=== PATIENT | female | born 1945 | race Caucasian/White ===

== ENCOUNTER 2021-02-05 09:18 | Day surgery (SDC) | payer MEDICARE, SELFPAY ==
--- NOTE | 2021-02-04 13:15 | PM.PREOP ---
Pre-operative Note COVID-19 COVID-19 status: Negative Interval Note History & Physical reviewed/Exam performed by Physician: Yes Changes to H&P: No H&P completed within 30 days and has changed as indicated here:: As blood pressure was markedly elevated at her preoperative exam she was seen by Dr. martin and started on lisinopril 20 mg a day 3 days ago. It has now improved and she is stable for surgery.
--- NOTE | 2021-02-05 07:15 | P.OP_ITS ---
Operative Date/Time/Diagnoses Date of procedure: 02/05/21 Time of procedure: 11:45 Procedure & Clinicians Procedure: Preoperative diagnoses: 1. Left complex surgery with use of capsular dye and possible MiLoop. 2. Mature or advanced nuclear sclerotic and cortical cataract with poor visibility of the anterior capsule increasing surgical risks of complications. 3. Uncontrolled hypertension. Postoperative diagnoses: 1. Left complex surgery with use of capsular dye and MiLoop. 2. Placement of a posterior chamber intraocular lens implant. Surgeon: Uzma Rahman MD Complications: none Specimen: None Implant: DIBOO+20.5 Blood loss: None Anesthesia: Retrobulbar with monitored standby. Description of procedure: Dictated by: Uzma Rahman MD Copy to: [facility] Post operative diagnoses: 1. Left complex cataract removed with use of capsular dye and MiLoop with placement of a posterior chamber intraocular lens. Procedure: Phacoemulsification with posterior chamber intraocular lens implant Surgeon: Uzma Rahman MD Blood loss: None Anesthesia: Retrobulbar with monitored standby Description of procedure: Patient has presented with decreased vision with count fingers vision due to extreme myopic shift. This is due to cataract which is affecting activities of daily living both at distance and. Due to the advanced cataract capsular dye will be needed as well as a MiLoop. The patient wants surgery to improve vision. She has no primary care physician though screening exam does show hypertension and she has been referred for follow-up. She understands the extra risk of surgery during the COVID-19 epidemic wishes to proceed. She has tested COVID virus negative within 72 hours of the procedure. The patient was taken to the operating room and given IV sedation. A retrobulbar block consisting of 6 cc of 2% xylocaine without epinephrine mixed half and half with 0.5% Marcaine with 1 cc of hyaluronidase added is placed between the medial and lateral 1/3 of the inferior orbital rim. Lid akinesia is obtain with 1% xylocaine with epinephrine infiltrated along the lid margin. The eye is manually massaged for 30 sec, prepped using Betadine solution, and draped in the usual sterile fashion. Temporal approach was made, a 1 mm side-port incision was performed 90 degrees from the planned corneal wound. Phenylephrine 1.5% mixed with 1% xylocaine 0.2 cc was placed into the anterior chamber. [An air bubble was placed and Visudyne dye was placed to improve visibility of the anterior capsule. The dye was irrigated out to reduce bubbles.] Viscoat followed by Healon was then placed. A 2.6 mm clear incision with a 2.6 mm blade was placed. A 360 degree capsulorrhexis style capsulotomy was then performed with a cystitome needle on a Healon. Hydrodelineation and hydrodissection were performed. The phacoemulsification unit is introduced, and sculpting used to groove the central lens slightly. It was very dense in the center in the Miloop was used. It was inspected and then opened up under the capsulorrhexis to the right and swept past midline of the lens. It was then placed back to midline and well- centered the loop was closed bisecting the lens in. It was then carefully removed from the anterior chamber. The hem-dissected nucleus was then removed in chopping mode. Epi nucleus is removed with epinuclear mode and irrigation aspiration was used to remove the peripheral cortex. The posterior capsule is polished. The intraocular lens is selected, inspected, power confirmed, and placed in the posterior chamber. The pupil was constricted with Miostat. The wound was stromally hydrated and tested for leaks, there was none and was left sutureless. Vigamox 0.1 cc was placed into the anterior chamber. Kenalog 0.2 cc was placed in the superior subconjunctival space. A drop of antibiotic and was placed and the eye was patched and shielded. The patient was stable and returned to the recovery room in excellent condition. Dictated by: Uzma Rahman MD Copy to: [facility] Same procedure as scheduled: Yes
[2021-02-05 09:45] VITALS: BP 169/83; PULSE 85; RESP 13; TEMP 36.4; O2SAT 98
[2021-02-05] MEDS: PROPARACAINE 0.5% OPHTH SOL 2 DROPS EYE-OP (09:55)
[2021-02-05] MEDS: CATARACT EYE COMPOUND (10 DROPS/SYRINGE) 3 DROPS EYE-OP (09:58)
[2021-02-05] MEDS: LIDOCAINE 2% 4 ML, BUPIVACAINE 0.5% (PF) 4 ML, HYALURONIDASE 150 UNIT INJ (11:00)
[2021-02-05] MEDS: CHONDROIDTIN/SOD HYALURONATE 1.05 ML SYRINGE INTRAOCULA (11:15)
[2021-02-05] MEDS: PHENYLEPHRINE/LIDOCAINE VIAL (OR) 0.2 ML EYE-OP (11:16)
[2021-02-05] MEDS: HYALURONATE SODIUM 10 MG/ML SYRINGE INJ (11:16)
[2021-02-05] MEDS: MOXIFLOXACIN INJ 4 MG/0.8 ML VIAL 0.5 MG EYE-OP (11:16)
[2021-02-05] MEDS: ERYTHROMYCIN OPHTH 1 GM OINT 1 APPLIC EYE-LEFT (11:16)
[2021-02-05] MEDS: TRIAMCINOLONE 50 MG/5 ML VIAL INJ (11:17)
[2021-02-05] MEDS: TRYPAN BLUE 0.5 ML SYRINGE INJ (11:17)
[2021-02-05] MEDS: BALANCED SALT IRRIG SOLN NO.2 500 ML, EPINEPHrine 1 MG IRR (11:18)
[2021-02-05 12:18] VITALS: BP 179/80; PULSE 70; RESP 16; TEMP 37.1; O2SAT 99
--- NOTE | 2021-02-05 12:20 | SUR.PHASEII ---
Pt ready to go, ride called, available for nut picker, pt dressed and left unit when ready and in stable condition.
== END 2021-02-05 12:25 | disposition home or self-care (01) ==
LOC: OR 09:21
PROVIDERS: PCP Family Medicine; Referring Provider Ophthalmology; Visit Provider Ophthalmology
PROC: (CPT 66982; principal; 2021-02-05 10:45)
DX: H25.812 Combined forms of age-related cataract, left eye (principal); I10 Essential (primary) hypertension
CPT/HCPCS: 66982; J0171; J3301; J3470

== ENCOUNTER 2021-04-02 12:53 | Day surgery (SDC) | payer MEDICARE, SELFPAY ==
--- NOTE | 2021-04-02 08:01 | P.OP_ITS ---
Operative Date/Time/Diagnoses Date of procedure: 04/02/21 Time of procedure: 14:15 Procedure & Clinicians Procedure: Preoperative diagnoses: 1. Right complex surgery with use of capsular dye. 2. Mature or advanced nuclear sclerotic and cortical cataract with poor visibility of the anterior capsule increasing surgical risks of complications. 3. Hypertension Postoperative diagnoses: 1. Complex surgery with use of capsular dye, 2. Placement of a posterior chamber intraocular lens implant. Surgeon: Uzma Rahman MD Complications: none Specimen: None Implant: DIBOO+20.5 Blood loss: None Anesthesia: Retrobulbar with monitored standby. Description of procedure: Dictated by: Uzma Rahman MD Post operative diagnoses: 1. Right cataract removed with use of capsular dye and use of a Miloop . 2. Placement of a posterior chamber intraocular lens. Procedure: Phacoemulsification with posterior chamber intraocular lens implant Surgeon: Uzma Rahman MD Blood loss: None Anesthesia: Retrobulbar with monitored standby Description of procedure: Patient has presented with decreased vision due to mature cataract which is affecting activities of daily living distance and near. She has had successful cataract surgery in her left eye for advanced cataract as well. She also has had [id number] hypertension no on 2 medications with improve. The patient wants surgery to improve vision. She understands the extra risk of surgery during the COVID 19 epidemic and wishes to proceed. She has tested COVID-19 virus negative within 72 hours of the procedure. The patient was taken to the operating room and given IV sedation. A retro bulbar block consisting of 6 cc of 2% xylocaine without epinephrine mixed half and half with 0.5% Marcaine with 1 cc of hyaluronidase added is placed between the medial and lateral 1/3 of the inferior orbital rim. The eye is manually massaged for 30 sec, prepped using Betadine solution, and draped in the usual sterile fashion. Temporal approach was made, a 1 mm side-port incision was performed 90 degrees from the planned corneal wound. Phenylephrine 1.5% mixed with 1% xylocaine 0.2 cc was placed into the anterior chamber. [An air bubble was placed and Visudyne dye was placed to improve visibility of the anterior capsule. The dye was irrigated out to reduce bubbles. ]Viscoat followed by Healon was then placed. A 2.6 mm clear incision with a 2.6 mm blade was placed. A 360 degree capsul orrhexis style capsulotomy was then performed with a cystitome needle on a Healon greatly aided by the capsular dye. Hydrodelineation and hydrodissection were performed. The phacoemulsification unit is introduced, and sculpting used to groove the central lens. Extra viscoeleasic was use as it was a mature lens . It is then removed in chopping mode. The minimal epi nucleus is removed with epinuclear mode and irrigation aspiration was used to remove the peripheral cortex. The posterior capsule is polished. The intraocular lens is selected, inspected, power confirmed, and placed in the posterior chamber. The pupil was not constricted with Miostat. The wound was stromally hydrated and tested for leaks, there was none and was left sutureless. Vigamox 0.1 cc was placed into the anterior chamber. Kenalog 0.2 cc was placed in the superior subconjunctival space. A drop of antibiotic and was placed and the eye was patched and shielded. The patient was stable and returned to the recovery room in excellent condition. Dictated by: Uzma Rahman MD Copy to: [facility] Same procedure as scheduled: Yes
--- NOTE | 2021-04-02 08:01 | PM.PREOP ---
Pre-operative Note COVID-19 COVID-19 status: Negative Interval Note History & Physical reviewed/Exam performed by Physician: Yes Changes to H&P: No
[2021-04-02 13:13] VITALS: BP 162/85; PULSE 106; RESP 14; TEMP 36.7; O2SAT 98; BMI 17.4
[2021-04-02] MEDS: PROPARACAINE 0.5% OPHTH SOL 2 DROPS EYE-OP (13:20)
[2021-04-02] MEDS: CATARACT EYE COMPOUND (10 DROPS/SYRINGE) 3 DROPS EYE-OP (13:21)
--- NOTE | 2021-04-02 13:42 | SUR.OPER ---
Supine on eye stretcher, head on extension cradle secured with tape. Arms tucked at sides with blanket. Pillow under knees.
[2021-04-02] MEDS: PHENYLEPHRINE/LIDOCAINE VIAL (OR) 0.2 ML EYE-OP (14:29)
[2021-04-02] MEDS: ERYTHROMYCIN OPHTH 1 GM OINT 1 APPLIC EYE-LEFT ×2 (14:29→14:33)
[2021-04-02] MEDS: MOXIFLOXACIN INJ 4 MG/0.8 ML VIAL 0.5 MG EYE-OP (14:30)
[2021-04-02] MEDS: LIDOCAINE 2% 4 ML, BUPIVACAINE 0.5% (PF) 4 ML, HYALURONIDASE 150 UNIT INJ (14:30)
[2021-04-02] MEDS: CHONDROIDTIN/SOD HYALURONATE 1.05 ML SYRINGE INTRAOCULA ×2 (14:30→14:31)
[2021-04-02] MEDS: HYALURONATE SODIUM 10 MG/ML SYRINGE INJ (14:32)
[2021-04-02] MEDS: BALANCED SALT IRRIG SOLN NO.2 500 ML, EPINEPHrine 1 MG IRR (14:32)
[2021-04-02] MEDS: TRYPAN BLUE 0.5 ML SYRINGE INJ (14:32)
[2021-04-02] MEDS: TRIAMCINOLONE 50 MG/5 ML VIAL INJ (14:34)
[2021-04-02 15:03] VITALS: BP 159/100; PULSE 98; RESP 16; TEMP 36.6; O2SAT 97
[2021-04-02 15:10] VITALS: BP 156/81; PULSE 76; RESP 16; O2SAT 97
== END 2021-04-02 15:15 | disposition home or self-care (01) ==
LOC: OR 12:56
PROVIDERS: PCP Family Medicine; Referring Provider Ophthalmology; Visit Provider Ophthalmology
PROC: (CPT 66984; principal; 2021-04-02 14:15)
DX: H25.811 Combined forms of age-related cataract, right eye (principal); I10 Essential (primary) hypertension
CPT/HCPCS: 66984; J0171; J3301; J3470